=== PATIENT | female | born 2000 | race African-American/Black ===

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

== ENCOUNTER 2018-03-12 18:38 | Emergency (ER) | payer SELFPAY ==
[~2018-03-12] VITALS: Ht 172.7 cm; Wt 63.5 kg
[2018-03-12] MEDS ORDERED: Solu-MEDROL 125mg Inj IVP ONE (19:15)
[2018-03-12] MEDS ORDERED: Ipratropium 0.02% Inh Soln 2.5ml UD HHN ONE (19:15)
[2018-03-12] MEDS ORDERED: Albuterol ud Inhalation HHN ONE (19:15)
[2018-03-12] MEDS ORDERED: ZANTAC150 MG ORAL (19:58)
[2018-03-12] MEDS ORDERED: DIPHENHYDRAMINE25 M1 ORAL (19:58)
[2018-03-12] MEDS ORDERED: PREDNISONE20 MG ORAL (19:58)
[2018-03-12 20:05] VITALS: BP 132/90
--- NOTE | 2018-03-12 22:30 | Emergency Room Report ---
History of Present Illness General Chief Complaint: Allergic Reaction Source: Patient Present Illness HPI 17-year-old female presents ED for allergic reaction. Brought in by EMS. Patient states she ate some shrimp today and shortly after she started noticing eye swelling and throat swelling in wheezing. Patient notes one prior episode of allergic reaction but does not know what she is allergic to. Was given Benadryl and epi by EMS. States she is feeling better. No longer feels throat tightness. Feels some wheezing. Denies any medication allergies. Denies chest pain. Denies tongue swelling. No other aggravating relieving factors. Denies any other associated symptoms Allergies: Coded Allergies: Shrimp (Unverified Allergy, Unknown, 03/12/18) Patient History Past Medical History: asthma Past Surgical History: none Pertinent Family History: none Social History: Denies: smoking, alcohol use, drug use Last Menstrual Period: n/a Now: No Immunizations: UTD Reviewed Nursing Documentation: PMH: Agreed; PSxH: Agreed Nursing Documentation-PMH Past Medical History: No History, Except For Hx Cardiac Problems: No Hx Asthma: Yes Hx Gastrointestinal Problems: No Hx Neurological Problems: Yes Review of Systems All Other Systems: negative except mentioned in HPI Physical Exam Vital Signs Date Time Temp Pulse Resp B/P (MAP) Pulse Ox O2 Delivery O2 Flow Rate FiO2 03/12/18 18:35 98.6 98 16 180/100 98 Room Air 03/12/18 19:14 21 Sp02 EP Interpretation: reviewed, normal General Appearance: no apparent distress, alert, GCS 15, non-toxic Head: normocephalic Eyes: bilateral eye PERRL, bilateral eye other - swelling bilateral eyelids ENT: normal ENT inspection, hearing grossly normal, normal pharynx, no angioedema, normal voice Neck: normal inspection, other - no stridor Respiratory: no respiratory distress, no retraction, no accessory muscle use, wheezing Cardiovascular #1: regular rate, rhythm, no edema Gastrointestinal: normal inspection Rectal: deferred Genitourinary: no CVA tenderness Musculoskeletal: normal inspection Neurologic: alert, oriented x3, responsive, motor strength/tone normal, sensory intact, speech normal Psychiatric: normal inspection Skin: normal inspection Lymphatic: normal inspection Medical Decision Making Diagnostic Impression: Primary Impression: Allergic reaction Qualified Codes: T78.40XA - Allergy, unspecified, initial encounter ER Course Hospital Course 17 yo F presents with eye swelling, wheezing after eating shrimp. given epi and benedryl by EMS Differential diagnoses include: allergic reaction, angioedema Clinical course Patient placed on stretcher. personnel monitor. After initial history and physical, I ordered Solu-Medrol, IVFS, nebs, pepcid Upon reassessment patient states she feels better. Breathing comfortably. No signs of stridor. No airway compromise. No tongue swelling. No urticaria. Discharge patient home after observation period. We will discharge with prednisone, Benadryl, Zantac. Patient has an EpiPen. I encouraged patient to follow-up with hotel baggage handler as outpatient i. I feel this is a highly complex case requiring extensive working including EKG/Rhythm strip, Xray/CT/US, Blood/urine lab work, repeat exams while in ED, and administration of strong opiates/narcotics for pain control, admission to hospital or close patient follow up. Diagnosis - allergic reaction Stable and discharged to home with prescriptions for Zantac, prednisone, Benadryl. Followup with PMD. Return to ED if symptoms recur or worsen Last Vital Signs Date Time Temp Pulse Resp B/P (MAP) Pulse Ox O2 Delivery O2 Flow Rate FiO2 03/12/18 20:05 98.0 9 18 132/90 100 Room Air 03/12/18 19:25 21 Status: improved Disposition: HOME, SELF-CARE Condition: Stable Scripts Prednisone* (PREDNISONE*) 20 Mg Tablet 40 MG ORAL DAILY for 5 Days, #10 TAB Prov: Aidan Bell MD 03/12/18 Ranitidine Hcl* (ZANTAC*) 150 Mg Tablet 150 MG ORAL TWICE A DAY for 5 Days, TAB Prov: Aidan Bell MD 03/12/18 Diphenhydramine Hcl* (DIPHENHYDRAMINE HCL*) 25 Mg Capsule 25 MG ORAL Q6H PRN for Itching for 5 Days, #30 CAP 0 Refills Prov: Aidan Bell MD 03/12/18 Referrals: NOT CHOSEN [facility]/,REFERRING (PCP) Departure Forms: Return to School Return to School On: Mar 14, 2018 School Release Restrictions: None Patient Instructions: Food Allergy, [id number] Aidan Bell MD Mar 12, 2018 22:30
== END 2018-03-12 20:06 | disposition home or self-care (01) ==
LOC: EDBD 18:38 → EMR 19:07
DX: T78.1XXA Other adverse food reactions, not elsewhere classified, initial encounter (principal); T78.3XXA Angioneurotic edema, initial encounter; X58.XXXA Exposure to other specified factors, initial encounter; J45.909 Unspecified asthma, uncomplicated
CPT/HCPCS: 94640; 94664; 96361; 96374; 96375; 99284; J2930; S0028

== ENCOUNTER 2018-04-28 12:23 | Emergency (ER) | payer MEDICAID ==
[~2018-04-28] VITALS: Ht 170.2 cm; Wt 57.2 kg
[~2018-04-28 12:23] MED LIST changes: +DIPHENHYDRAMINE25 M1 ORAL; +PREDNISONE20 MG ORAL; +ZANTAC150 MG ORAL
[2018-04-28] MEDS ORDERED: NKM (12:43)
[2018-04-28 12:53] VITALS: BP 117/68
--- NOTE | 2018-04-28 12:53 | NUR ---
ED Nurse Note: PT WALKED IN TO ER TODAY FROM HOME. AOX4. PT C/O LOWER MEDIAL ABDOMINAL PAIN, 12/25 DESCRIBED SHARP. PT ALSO C/O NAUSEA ACCOMPANIED BY MULTIPLE EPISODES OF VOMITING AND DIARRHEA X THIS AM. ACTIVE BOWEL SOUNDS IN ALL QUADRANTS. ABDOMEN NONDISTENDED BUT TENDER TO PALPATION IN LOWER QUADRANTS.
[2018-04-28] MEDS ORDERED: Metoclopramide 10mg/2ml Inj IVP ONE (13:00)
[2018-04-28] MEDS ORDERED: Dicyclomine HCl 10mg/5ml oral soln ORAL ONE (13:00)
--- NOTE | 2018-04-28 13:20 | NUR ---
ED Nurse Note: blood and urine sent down to the lab.
--- NOTE | 2018-04-28 13:42 | Emergency Room Report ---
History of Present Illness General Chief Complaint: Abdominal Pain Source: Patient Present Illness HPI 17-year-old female presents to the emergency department complaining of 10 out of 10 in severity sharp mid lower abdominal pain times one day with multiple episodes of diarrhea and vomiting. Patient reports that her vomiting is primarily stomach acid. Patient denies fevers or chills. Denies recent travel or ill contacts. Patient denies she states she is currently on her period. Patient denies rashes/genital lesions, swollen tender lymph nodes, joint pain, history of STI, adnexal tenderness or pain. Allergies: Coded Allergies: Shrimp (Unverified Allergy, Unknown, 04/28/18) Patient History Past Medical History: see triage record Past Surgical History: none Pertinent Family History: none Last Menstrual Period: Mar 2018 Now: No Reviewed Nursing Documentation: PMH: Agreed; PSxH: Agreed Nursing Documentation-PMH Past Medical History: No History, Except For Hx Cardiac Problems: No Hx Asthma: Yes Hx Gastrointestinal Problems: No Hx Neurological Problems: Yes Review of Systems All Other Systems: negative except mentioned in HPI Physical Exam Vital Signs Date Time Temp Pulse Resp B/P (MAP) Pulse Ox O2 Delivery O2 Flow Rate FiO2 04/28/18 12:40 97.9 68 16 135/75 98 Room Air Sp02 EP Interpretation: reviewed, normal General Appearance: no apparent distress, alert, GCS 15, non-toxic Head: normocephalic, atraumatic Eyes: bilateral eye normal inspection, bilateral eye PERRL ENT: hearing grossly normal, normal voice Neck: full range of motion Respiratory: lungs clear, normal breath sounds, speaking full sentences Cardiovascular #1: regular rate, rhythm Gastrointestinal: normal bowel sounds, soft, non-distended, no guarding, other - TTP very very low in the uterine/pubic area, non appreciable RLQ TTP. Rectal: deferred Genitourinary: normal inspection, no CVA tenderness Musculoskeletal: back normal, gait/station normal, normal range of motion, non- tender Neurologic: alert, oriented x3, responsive, motor strength/tone normal, sensory intact, speech normal, grossly normal Psychiatric: judgement/insight normal Skin: normal color, no rash, warm/dry, well hydrated Medical Decision Making PA Attestation Dr. Preston is my supervising Physician whom patient management has been discussed with. Diagnostic Impression: Primary Impression: Abdominal pain Qualified Codes: R10.30 - Lower abdominal pain, unspecified Additional Impressions: Gastroenteritis Dehydration, mild ER Course 17-year-old female presents to the emergency department complaining of 10 out of 10 in severity sharp mid lower abdominal pain times one day with multiple episodes of diarrhea and vomiting. Patient reports that her vomiting is primarily stomach acid. Patient denies fevers or chills. Denies recent travel or ill contacts. Patient denies she states she is currently on her period. Patient denies rashes/genital lesions, swollen tender lymph nodes, joint pain, history of STI, adnexal tenderness or pain. Ddx considered but are not limited to Diverticulitis, acute appy, diarrhea,UC, PUD, GE, pancreatitis, gallstone, THC induced vomiting, just to name a few. Vital signs: are WNL, pt. is afebrile H&PE are most consistent with mild dehydration secondary to GI fluid loss: Vomiting and diarrhea. ORDERS: CBC, CMP, lipase, UA: all unremarkable and WNL. -Urine Hcg: Negative UDS: positive for THC ED INTERVENTIONS: -1Liter NS -10mg Reglan IV -I do not identify an emergent condition at this time. With current presentation , pt. is stable for close outpatient follow up and conservative treatment. D/ w pt. to return promptly to ED with worsening or new symptoms.- Pt. verbalizes' understanding and agreement with proposed treatment plan. DISCHARGE: At this time pt. is stable for d/c to home. Will provide printed patient care instructions, and any necessary prescriptions. Care plan and follow up instructions have been discussed with the patient prior to discharge. Labs Test 04/28/18 13:00 04/28/18 13:14 Urine Color Pale yellow Urine Appearance Slightly cloudy Urine pH 8 (4.5-8.0) Urine Specific [place] 1.010 (1.005-1.035) Urine Protein 2+ (NEGATIVE) Urine Glucose (UA) Negative (NEGATIVE) Urine Ketones 2+ (NEGATIVE) Urine Blood 5+ (NEGATIVE) Urine Nitrite Negative (NEGATIVE) Urine Bilirubin Negative (NEGATIVE) Urine Urobilinogen Normal MG/DL (0.0-1.0) Urine Leukocyte Esterase 1+ (NEGATIVE) Urine RBC 30-40 /HPF (0 - 2) Urine WBC 0-2 /HPF (0 - 2) Urine Squamous Epithelial Cells Few /LPF (NONE/OCC) Urine Bacteria Occasional /HPF (NONE) Urine HCG, Qualitative Negative (NEGATIVE) Urine Opiates Screen Negative (NEGATIVE) Urine Barbiturates Screen Negative (NEGATIVE) Phencyclidine (PCP) Screen Negative (NEGATIVE) Urine Amphetamines Screen Negative (NEGATIVE) Urine Benzodiazepines Screen Negative (NEGATIVE) Urine Cocaine Screen Negative (NEGATIVE) Urine Marijuana (THC) Screen Positive (NEGATIVE) White Blood Count 7.1 K/UL (4.8-10.8) Red Blood Count 4.74 M/UL (4.20-5.40) Hemoglobin 14.4 G/DL (12.0-16.0) Hematocrit 42.9 % (37.0-47.0) Mean Corpuscular Volume 90 FL (80-99) Mean Corpuscular Hemoglobin 30.4 PG (27.0-31.0) Mean Corpuscular Hemoglobin Concent 33.7 G/DL (32.0-36.0) Red Cell Distribution Width 11.1 % (11.6-14.8) Platelet Count 184 K/UL (150-450) Mean Platelet Volume 7.5 FL (6.5-10.1) Neutrophils (%) (Auto) 81.1 % (45.0-75.0) Lymphocytes (%) (Auto) 13.0 % (20.0-45.0) Monocytes (%) (Auto) 4.6 % (1.0-10.0) Eosinophils (%) (Auto) 0.7 % (0.0-3.0) Basophils (%) (Auto) 0.6 % (0.0-2.0) Sodium Level 137 MMOL/L (136-145) Potassium Level 3.7 MMOL/L (3.5-5.1) Chloride Level 102 MMOL/L (98-107) Carbon Dioxide Level 26 MMOL/L (21-32) Anion Gap 9 mmol/L (5-15) Blood Urea Nitrogen 10 mg/dL (7-18) Creatinine 0.9 MG/DL (0.55-1.30) Estimat Glomerular Filtration Rate > 60 mL/min (>60) Glucose Level 126 MG/DL (74-106) Calcium Level 9.1 MG/DL (8.5-10.1) Total Bilirubin 0.7 MG/DL (0.2-1.0) Aspartate Amino Transf (AST/SGOT) 19 U/L (15-37) Alanine Aminotransferase (ALT/SGPT) 19 U/L (12-78) Alkaline Phosphatase 83 U/L (46-116) Total Protein 7.8 G/DL (6.4-8.2) Albumin 4.5 G/DL (3.4-5.0) Globulin 3.3 g/dL Albumin/Globulin Ratio 1.4 (1.0-2.7) Lipase 89 U/L (73-393) Last Vital Signs Date Time Temp Pulse Resp B/P (MAP) Pulse Ox O2 Delivery O2 Flow Rate FiO2 04/28/18 12:40 97.9 68 16 135/75 98 Room Air Status: improved Disposition: HOME, SELF-CARE Condition: Stable Scripts Ranitidine Hcl* (ZANTAC*) 150 Mg Tablet 150 MG ORAL TWICE A DAY for 7 Days, #14 TAB Prov: Estefany Abernathy 04/28/18 Ondansetron Odt* (ZOFRAN ODT*) 8 Mg Tab.rapdis 4 MG ORAL Q6H PRN for Nausea & Vomiting, #15 TAB Prov: Estefany Abernathy 04/28/18 Patient Instructions: Abdominal Pain, Adult Additional Instructions: Take medications as directed. Follow up with a Primary Care Provider in 3-5 days, even if your symptoms have resolved. --Please review list of primary care clinics, if you do not already have a primary care provider Return sooner to ED if new symptoms occur, or current symptoms become worse. - Please note that this Emergency Department Report was dictated using [employer] mill[employer] technology software, occasionally this can lead to erroneous entry secondary to interpretation by the dictation equipment. Estefany Abernathy Apr 28, 2018 13:42
[2018-04-28 13:50] LABS: BASOPHILS % (AUTO) 0.6 % (0.0-2.0); EOSINOPHILS % (AUTO) 0.7 % (0.0-3.0); HEMATOCRIT 42.9 % (37.0-47.0); HEMOGLOBIN 14.4 G/DL (12.0-16.0); MEAN CORPUSCULAR VOLUME 90 FL (80-99); MONOCYTES % (AUTO) 4.6 % (1.0-10.0); NEUTROPHILS % (AUTO) 81.1 % (45.0-75.0); PLATELET COUNT 184 K/UL (150-450); RED BLOOD COUNT 4.74 M/UL (4.20-5.40); RED CELL DISTRIBUTION WIDTH 11.1 % (11.6-14.8); WHITE BLOOD COUNT 7.1 K/UL (4.8-10.8)
[2018-04-28 13:57] LABS: APPEARANCE,URINE SLIGHTLY CLOUDY; BILIRUBIN, URINE NEGATIVE (NEGATIVE); COLOR,URINE PALE YELLOW; GLUCOSE, URINE (UA) NEGATIVE (NEGATIVE); KETONES,URINE 2+ (NEGATIVE); LEUKOCYTE ESTERASE ,URINE 1+ (NEGATIVE); NITRITE,URINE NEGATIVE (NEGATIVE); PH,URINE 8 (4.5-8.0); PROTEIN,URINE 2+ (NEGATIVE); UROBILINOGEN,URINE NORMAL MG/DL (0.0-1.0)
[2018-04-28 14:05] LABS: ANION GAP 9 mmol/L (5-15); BLOOD UREA NITROGEN 10 mg/dL (7-18); CALCIUM 9.1 MG/DL (8.5-10.1); CARBON DIOXIDE 26 MMOL/L (21-32); CHLORIDE 102 MMOL/L (98-107); CREATININE 0.9 MG/DL (0.55-1.30); POTASSIUM 3.7 MMOL/L (3.5-5.1); SODIUM 137 MMOL/L (136-145)
[2018-04-28 14:14] LABS: ALANINE AMINOTRANSFERASE 19 U/L (12-78); ALBUMIN 4.5 G/DL (3.4-5.0); ALBUMIN/GLOBULIN RATIO 1.4 (1.0-2.7); ALKALINE PHOSPHATASE 83 U/L (46-116); ASPARTATE AMINO TRANSFERASE 19 U/L (15-37); BILIRUBIN,TOTAL 0.7 MG/DL (0.2-1.0)
[2018-04-28] MEDS ORDERED: ZOFRAN ODT8 MG ORAL (14:28)
[2018-04-28] MEDS ORDERED: RANITIDINE HCL150 MG ORAL (14:28)
[2018-04-28 14:38] VITALS: BP 113/63
--- NOTE | 2018-04-28 14:39 | NUR ---
ED Nurse Note: PT LAYING PEACEFULLY IN BED IN NAD. AOX4. PRESCRIPTIONS AND DISCHARGE PAPERWORK EXPLAINED TO PT. PT VERBALIZES UNDERSTANDING AND ALL QUESTIONS WERE ANSWERED. PRESCRIPTIONS AND DISCHARGE PAPERWORK GIVEN TO PT, IV AND ID WRISTBAND REMOVED. PT WALKED OUT OF ER WITH STEADY GAIT AND ALL BELONGINGS.
== END 2018-04-28 14:40 | disposition home or self-care (01) ==
LOC: EMR 12:40
DX: R10.30 Lower abdominal pain, unspecified (principal); K52.9 Noninfective gastroenteritis and colitis, unspecified; E86.0 Dehydration; J45.909 Unspecified asthma, uncomplicated
CPT/HCPCS: 36415; 80053; 80307; 81003; 81025; 83690; 85025; 96361; 96374; 96375; 99284; J2765; S0028

== ENCOUNTER 2018-07-01 11:18 | Emergency (ER) | payer MEDICAID ==
[~2018-07-01] VITALS: Ht 170.2 cm; Wt 57.2 kg
[~2018-07-01 11:18] MED LIST changes: +NKM; +RANITIDINE HCL150 MG ORAL; +ZOFRAN ODT8 MG ORAL
[2018-07-01 11:26] VITALS: BP 130/74
--- NOTE | 2018-07-01 11:56 | NUR ---
ED Nurse Note: Patient presents to ER due to N/V/D (every 30 min) and low abdominal pain (cramping). Patient is 6 weeks . Reports no vaginal bleeding or discharge. Reports no urinary symptoms. Reports no fever, chills or travel hx. Patient awake, alert, oriented x 3. Regular, unlabored breathing noted. Skin mucosa moist, pink. Ambulated to the room with steady gait. No active N/V noted. Provided comfort measures.
[2018-07-01 12:24] LABS: APPEARANCE,URINE CLEAR; BILIRUBIN, URINE NEGATIVE (NEGATIVE); GLUCOSE, URINE (UA) NEGATIVE (NEGATIVE); KETONES,URINE 4+ (NEGATIVE); LEUKOCYTE ESTERASE ,URINE 1+ (NEGATIVE); NITRITE,URINE NEGATIVE (NEGATIVE); PH,URINE 6 (4.5-8.0); PROTEIN,URINE 2+ (NEGATIVE); UROBILINOGEN,URINE NORMAL MG/DL (0.0-1.0)
[2018-07-01 12:28] LABS: INR 1.2 (0.9-1.1)
[2018-07-01 12:29] LABS: BASOPHILS % (AUTO) 1.2 % (0.0-2.0); EOSINOPHILS % (AUTO) 0.5 % (0.0-3.0); HEMATOCRIT 41.1 % (37.0-47.0); HEMOGLOBIN 14.1 G/DL (12.0-16.0); LYMPHOCYTES % (AUTO) 17.9 % (20.0-45.0); MEAN CORPUSCULAR VOLUME 89 FL (80-99); MONOCYTES % (AUTO) 7.5 % (1.0-10.0); NEUTROPHILS % (AUTO) 72.9 % (45.0-75.0); PLATELET COUNT 236 K/UL (150-450); RED BLOOD COUNT 4.59 M/UL (4.20-5.40); RED CELL DISTRIBUTION WIDTH 10.7 % (11.6-14.8); WHITE BLOOD COUNT 7.3 K/UL (4.8-10.8)
--- NOTE | 2018-07-01 12:33 | Emergency Room Report ---
History of Present Illness General Chief Complaint: Nausea, Vomiting, and Diarrhea Source: Patient Present Illness HPI Patient is a 17-year-old female who presented after increased nausea and vomiting. Patient was noted to be approximately 6 weeks. She is A1. Patient stated that she had onset of vomiting several days ago and had been having some nonbloody emesis. She reports having watery diarrhea with lower abdominal cramping. She denies any bad food intake. She denies any fever. Allergies: Coded Allergies: Shrimp (Unverified Allergy, Unknown, 04/28/18) Patient History Past Medical History: see triage record Last Menstrual Period: 05/24/2018 Now: Yes : 1 Para: 0 Reviewed Nursing Documentation: PMH: Agreed; PSxH: Agreed Nursing Documentation-PMH Past Medical History: No History, Except For Hx Cardiac Problems: No Hx Asthma: Yes Hx Gastrointestinal Problems: No Hx Neurological Problems: Yes Physical Exam Vital Signs Date Time Temp Pulse Resp B/P (MAP) Pulse Ox O2 Delivery O2 Flow Rate FiO2 07/01/18 11:26 98.2 62 14 130/74 99 Room Air Sp02 EP Interpretation: reviewed, normal General Appearance: normal inspection, well appearing, no apparent distress, alert, GCS 15, non-toxic Head: atraumatic ENT: normal ENT inspection, hearing grossly normal, normal voice Neck: normal inspection, full range of motion, supple, no bony tend Respiratory: normal inspection, lungs clear, normal breath sounds, no respiratory distress, no retraction, no wheezing Cardiovascular #1: regular rate, rhythm, no edema Gastrointestinal: normal inspection, normal bowel sounds, non tender, soft, no guarding, no hernia Genitourinary: no CVA tenderness Musculoskeletal: normal inspection, back normal, normal range of motion Neurologic: normal inspection, alert, oriented x3, responsive, physician ophthalmologist III-XII nml as tested, speech normal Psychiatric: normal inspection, judgement/insight normal, mood/affect normal Skin: normal inspection, normal color, no rash Medical Decision Making Diagnostic Impression: Primary Impression: Intrauterine Additional Impressions: Dehydration, mild Gastroenteritis ER Course Patient presented for abdominal cramping as well as vomiting and diarrhea. Differential diagnosis includes is not limited to hyperemesis gravidarum, gastroenteritis, ectopic , appendicitis among others. Because of complexity of patient's case laboratory testing and imaging studies were ordered. Patient was noted to have some evidence of hyperemesis and was started on IV fluids. Patient was discussed risk benefits and alternatives of various antiemetics and she indicated wishing to proceed with IV Zofran. Patient was given IV Zofran as well as IV fluids she was noted to have improvement in her nausea. Pelvic ultrasound showed intrauterine which at adequate heart tones. There is noted to be a ruptured ovarian cyst. Patient was advised to recheck with her [employer] in 1-2 days. Patient was advised to return for persistent vomiting severe pain or other concerns. Labs Test 07/01/18 12:07 White Blood Count 7.3 K/UL (4.8-10.8) Red Blood Count 4.59 M/UL (4.20-5.40) Hemoglobin 14.1 G/DL (12.0-16.0) Hematocrit 41.1 % (37.0-47.0) Mean Corpuscular Volume 89 FL (80-99) Mean Corpuscular Hemoglobin 30.7 PG (27.0-31.0) Mean Corpuscular Hemoglobin Concent 34.4 G/DL (32.0-36.0) Red Cell Distribution Width 10.7 % (11.6-14.8) Platelet Count 236 K/UL (150-450) Mean Platelet Volume 7.7 FL (6.5-10.1) Neutrophils (%) (Auto) 72.9 % (45.0-75.0) Lymphocytes (%) (Auto) 17.9 % (20.0-45.0) Monocytes (%) (Auto) 7.5 % (1.0-10.0) Eosinophils (%) (Auto) 0.5 % (0.0-3.0) Basophils (%) (Auto) 1.2 % (0.0-2.0) Prothrombin Time 12.5 SEC (9.30-11.50) Prothromb Time International Ratio 1.2 (0.9-1.1) Activated Partial Thromboplast Time 28 SEC (23-33) Urine Color Yellow Urine Appearance Clear Urine pH 6 (4.5-8.0) Urine Specific [place] 1.015 (1.005-1.035) Urine Protein 2+ (NEGATIVE) Urine Glucose (UA) Negative (NEGATIVE) Urine Ketones 4+ (NEGATIVE) Urine Blood Negative (NEGATIVE) Urine Nitrite Negative (NEGATIVE) Urine Bilirubin Negative (NEGATIVE) Urine Urobilinogen Normal MG/DL (0.0-1.0) Urine Leukocyte Esterase 1+ (NEGATIVE) Urine RBC 0-2 /HPF (0 - 2) Urine WBC 0-2 /HPF (0 - 2) Urine Squamous Epithelial Cells Moderate /LPF (NONE/OCC) Urine Bacteria Few /HPF (NONE) Urine Mucus Moderate /LPF (NONE/OCC) Sodium Level 135 MMOL/L (136-145) Potassium Level 3.9 MMOL/L (3.5-5.1) Chloride Level 102 MMOL/L (98-107) Carbon Dioxide Level 23 MMOL/L (21-32) Anion Gap 10 mmol/L (5-15) Blood Urea Nitrogen 10 mg/dL (7-18) Creatinine 0.8 MG/DL (0.55-1.30) Estimat Glomerular Filtration Rate > 60 mL/min (>60) Glucose Level 84 MG/DL (74-106) Calcium Level 9.2 MG/DL (8.5-10.1) Total Bilirubin 1.1 MG/DL (0.2-1.0) Direct Bilirubin 0.2 MG/DL (0.0-0.3) Aspartate Amino Transf (AST/SGOT) 14 U/L (15-37) Alanine Aminotransferase (ALT/SGPT) 15 U/L (12-78) Alkaline Phosphatase 61 U/L (46-116) Total Protein 7.5 G/DL (6.4-8.2) Albumin 4.2 G/DL (3.4-5.0) Globulin 3.3 g/dL Albumin/Globulin Ratio 1.3 (1.0-2.7) Lipase 115 U/L (73-393) Human Chorionic Gonadotropin, Quant 12865 mIU/mL (1-6) Last Vital Signs Date Time Temp Pulse Resp B/P (MAP) Pulse Ox O2 Delivery O2 Flow Rate FiO2 07/01/18 11:26 98.2 62 14 130/74 99 Room Air Status: improved Disposition: HOME, SELF-CARE Condition: Stable Scripts Doxylamine/Pyridoxine Hcl (MARY BETH BIGGS 10-10 MG TABLET) 1 Each Tablet.dr 1 EACH PO [facility], #30 TAB Prov: Christos Preston MD 07/01/18 Christos Preston MD Jul 01, 2018 12:33
[2018-07-01 12:35] LABS: COLOR,URINE YELLOW
[2018-07-01 12:36] LABS: ANION GAP 10 mmol/L (5-15); BLOOD UREA NITROGEN 10 mg/dL (7-18); CALCIUM 9.2 MG/DL (8.5-10.1); CARBON DIOXIDE 23 MMOL/L (21-32); CHLORIDE 102 MMOL/L (98-107); CREATININE 0.8 MG/DL (0.55-1.30); POTASSIUM 3.9 MMOL/L (3.5-5.1); SODIUM 135 MMOL/L (136-145)
[2018-07-01 12:46] LABS: ALANINE AMINOTRANSFERASE 15 U/L (12-78); ALBUMIN 4.2 G/DL (3.4-5.0); ALBUMIN/GLOBULIN RATIO 1.3 (1.0-2.7); ALKALINE PHOSPHATASE 61 U/L (46-116); ASPARTATE AMINO TRANSFERASE 14 U/L (15-37); BILIRUBIN,TOTAL 1.1 MG/DL (0.2-1.0)
[2018-07-01 12:55] LABS: BILIRUBIN,DIRECT 0.2 MG/DL (0.0-0.3)
[2018-07-01] MEDS ORDERED: DICLEGIS DR 101 EACH PO (13:59)
[2018-07-01 15:21] VITALS: BP 127/70
--- NOTE | 2018-07-01 15:22 | NUR ---
ER DISCHARGE NOTE: Patient is cleared to be discharged per ERMD, pt is aox4, on room air, with stable vital signs. pt was given dc and prescription instructions, pt was able to verbalize understanding, pt id band and iv site removed without complications. pt is able to ambulate with steady gait. pt took all belongings.
--- NOTE | 2018-07-02 10:36 | Diagnostic Imaging Report ---
Indication: Abdominal pain, positive test Technique: Transabdominal and transvaginal images. Doppler interrogation of the bilateral ovaries Comparison: none Findings: Uterus measures 8.2 cm length by 3.8 cm AP. Small amount of free cul-de-sac fluid within the uterus, there is a gestational sac. This is at the left lateral fundal margin.. This contains a pole with a crown-rump length of 6 mm, corresponding to an estimated gestational age of 6 weeks 2 days. It also demonstrates a yolk sac. No subchorionic hemorrhage demonstrated. Positive heart activity noted, heart rate is 153 bpm. There is free fluid around the right ovary. No myometrial abnormality. Right ovary measures 3.3 cm length. Left ovary measures 2.8 cm length. No adnexal mass. Normal ovarian blood flow is demonstrated bilaterally on Doppler imaging. Tiny cervical nabothian cysts are noted Impression: Live intrauterine at the superolateral fundal margin. Probably endometrial, but given the location the possibility of interstitial ectopic should also be considered. Recommend follow-up short-term sonography for further evaluation Positive heart activity is noted. Estimated gestational age of 6 weeks 2 days by crown-rump length measurement. Free right adnexal region fluid, most likely physiologic Tiny cervical nabothian cysts incidentally noted This agrees with the preliminary interpretation provided overnight by [facility].
== END 2018-07-01 15:22 | disposition home or self-care (01) ==
LOC: EMR 12:56
DX: K52.9 Noninfective gastroenteritis and colitis, unspecified (principal); O99.611 Diseases of the digestive system complicating pregnancy, first trimester; E86.0 Dehydration; Z91.013 Allergy to seafood
CPT/HCPCS: 36415; 76801; 76830; 80053; 81003; 82248; 83690; 84702; 85025; 85610; 85730; 96361; 96374; 99284; J2405